=== PATIENT | female | born 1950 | race Caucasian/White ===

== ENCOUNTER 2022-10-02 21:26 | Emergency (ER) | payer MEDICARE ==
[2022-10-02 22:28] VITALS: BP 149/75
[2022-10-02 22:46] VITALS: BP 125/79
[2022-10-03] MEDS ORDERED: VOLTAREN75 MG PO (00:02)
[2022-10-03] MEDS ORDERED: LORTAB5 PO (00:02)
[2022-10-03] MEDS ORDERED: GABAPENTIN100 MG PO (00:02)
[2022-10-03 00:25] VITALS: BP 159/91
== END 2022-10-03 00:15 | disposition home or self-care (01) ==
LOC: ED 21:26
DX: S39.012A Strain of muscle, fascia and tendon of lower back, initial encounter (principal); M54.16 Radiculopathy, lumbar region; N83.209 Unspecified ovarian cyst, unspecified side; I10 Essential (primary) hypertension; E11.9 Type 2 diabetes mellitus without complications; X58.XXXA Exposure to other specified factors, initial encounter